=== PATIENT | female | born 1995 ===

== ENCOUNTER 2021-11-17 17:31 | Emergency (ER) | payer SELFPAY ==
[~2021-11-17] VITALS: Ht 162.6 cm; Wt 64.0 kg
[2021-11-17 17:34] VITALS: BP 119/63
== END 2021-11-17 20:04 | disposition left against medical advice (07) ==
LOC: M ED 17:31
DX: Z53.21 Procedure and treatment not carried out due to patient leaving prior to being seen by health care provider (principal)